=== PATIENT | female | born 1945 | race Hispanic/Latino ===

== ENCOUNTER 2019-03-01 08:40 | Day surgery (SDC) | payer MEDICARE ==
--- NOTE | 2019-02-27 11:46 | RAD REPORT ---
EXAM DESCRIPTION: RAD - Chest Pa And Lat (2 Views) - 02/27/2019 11:39 am CLINICAL HISTORY: preoppreop chest, pending gallbladder resection, history of hypertension COMPARISON: None. TECHNIQUE: PA and lateral views of the chest were obtained. FINDINGS: The lungs are clear of a peripheral mass or consolidation. Interstitial pattern is mildly prominent. In the absence of any active lung parenchymal process this is believed to be baseline. H eart size is normal and central vasculature is within normal limits. No pleural effusion or pneumoth orax seen. No acute bony finding noted. No aortic abnormality. IMPRESSION: No acute cardiopulmonary process.
[2019-02-27 11:48] LABS: Basophils % 0.9 % (0-1.3); Hematocrit 31.9 % (36.0-45.0); Lymphocytes % 24.7 % (15.3-44.8); RBC Red Blood Cell Count 3.52 M/uL (3.86-4.86)
[2019-02-27 12:07] LABS: Potassium 3.9 mmol/L (3.5-5.1)
[2019-02-27 12:18] LABS: ALT/SGPT 29 U/L (12-78); AST/SGOT 22 U/L (15-37); Albumin 3.6 g/dL (3.4-5.0); Alkaline Phosphatase 89 U/L (45-117); Amylase Level 50 U/L (25-115); Bilirubin Direct < 0.1 mg/dL (0-0.2); Bilirubin Total 0.3 mg/dL (0.2-1.0); Lipase 208 U/L (73-393); Protein, Total 7.4 g/dL (6.4-8.2)
--- NOTE | 2019-02-27 12:36 | EKG ---
Test Date: 2019-02-27 Test Time: 11:15:19 Operator Control Room: MISSY MEASUREMENT RESULTS: Intervals: Rate: 71 PA: 168 QRSD: 128 QT: 422 QTc: 458 [place]: P: 0 PA: 168 QRS: -21 T: 130 INTERPRETIVE STATEMENTS: Normal sinus rhythm Left bundle branch block Abnormal ECG No previous ECG available for comparison Electronically Signed On 02-27-19 12:35:35 PIECE PRESSER by Hilario Martins
--- OUTSIDE RECORDS SUMMARY | 2019-03-01 08:42 | XMS REPORT ---
:1945 [facility] Address [address] [place] [address] Dr. Manrique [address] [place] [id number] Care Team Providers Name Role Phone Unavailable Unavailable Unavailable Problems This patient has no known problems. Allergies, Adverse Reactions, Alerts This patient has no known allergies or adverse reactions. Medications This patient has no known medications.
[2019-03-01] MEDS ORDERED: NA CHLORIDE 0.9% 1,000 ML ONE (09:06)
[2019-03-01] MEDS ORDERED: CEFOXITIN/SWI 1gm 1 GM/10 ML SYR ONE (09:06)
[2019-03-01] MEDS ORDERED: FENTANYL CITR 100 MCG/2 ML ONE (10:18)
[2019-03-01] MEDS ORDERED: PROPOFOL 200 MG/20 ML VIAL IV ONE (10:18)
[2019-03-01] MEDS ORDERED: ROCURONIUM 50 MG/5 ML VIAL IV ONE (10:19)
[2019-03-01] MEDS ORDERED: LIDOCAINE 2% MPF 5 ML VIAL ONE (10:20)
[2019-03-01] MEDS ORDERED: MIDAZOLAM HCL 2 MG/2 ML INJ ONE (10:20)
[2019-03-01] MEDS ORDERED: ONDANSETRON 4 MG/2 ML VIAL ONE ×2 (10:23→13:18)
[2019-03-01] MEDS ORDERED: Phenylephrine HCl 10 MG/ML 1 ML VIAL ONE (11:03)
[2019-03-01] MEDS ORDERED: NS 0.9% VIAL 20 ML ONE (11:04)
[2019-03-01] MEDS ORDERED: EPHEDRINE SULF 50 MG/ML VIAL ONE (11:11)
[2019-03-01] MEDS ORDERED: LABETALOL 20 MG/4ML SYRINGE IV ONE (11:29)
--- NOTE | 2019-03-01 11:32 | P.BOP ---
Preoperative diagnosis: RUQ abd pain, symptomatic cholelithiasis Postoperative diagnosis: same plus acute cholecystitis, incarcerated umbilical hernia Primary procedure: 1. Laparoscopic cholecystectomy Secondary procedure: 2. Open repair of incarcerated umbilical hernia Chuck Wagon Driver: ALONA JONES ([employer]SULTANT) Estimated blood loss: <10cc Specimen: gb, hernia sac Findings: as above Anesthesia: General Complications: None Transferred to: Recovery Room Condition: Good
[2019-03-01] MEDS ORDERED: GLYCOPYRROLATE 0.2 MG/ML SYR ONE (11:36)
[2019-03-01] MEDS: HYDROMORPHONE HCL 1 MG/ML INJ ONE ×2 (12:25→12:31)
[2019-03-01 13:02] VITALS: BP 172/84; TEMP 98.7; O2SAT 94
[2019-03-01] MEDS ORDERED: ONDANSETRON 4 MG (ODT) TAB ONE (14:11)
--- NOTE | 2019-03-01 23:12 | OP ---
Date of Procedure: 03/01/2019 Surgeon: Don Stack MD Insert Cutter: Jana Yee. Preoperative Diagnoses: Acute cholecystitis, right upper quadrant abdominal pain, symptomatic cholel ithiasis. Postoperative Diagnoses: Acute cholecystitis, right upper quadrant abdominal pain, symptomatic darwin lithiasis plus incarcerated umbilical hernia. Procedure Performed: 1.Laparoscopic cholecystectomy. 2.Open repair of an incarcerated umbilical hernia. Estimated Blood Loss: Less than 10 mL. Specimen: Gallbladder and hernia sac with content. Findings: The patient has above in the gallbladder with inflammation of the wall. Patient also has umbilical hernia with incarcerated omentum. Anesthesia: General plus local. Indications: This is the case of a 73-year-old patient who comes to us with above diagnosis. Fully explained the benefits, alternatives, and risks of laparoscopic, possible open cholecystectomy, which include, but are not limited to infection, bleeding, damage to adjacent structures, anesthesia compl ications, choledocholithiasis, bile leak, pancreatitis, MT, and even . She also understands thi s may not relieve the symptoms. She might need more than one surgical intervention. She understood, signed a consent. Description Of Procedure: Patient was brought to the operating room, placed in supine position. Ane sthesia was given without complication. Abdominal area was prepped and draped in usual sterile fashi on. Marcaine 0.5% was injected for local anesthetic, followed by sharp incision of the skin in the i nfraumbilical region. Immediately hernia sac was found, so we have to address that issue first; we f ound a hernia sac, opened, noticed incarcerated omentum. Hard to reduce, so we just ligated it, redu mckenzie back the rest of the omentum after inspecting make sure there was no bleeding and then removed th e hernia sac and sent it to the pathologist. Incision was then extended to allow me to use part of t hat incision as the incision for Marjorie trocar, so incision was made in the infraumbilical region. V icryl #1 placed inside of the fascia, Marjorie trocar was carefully introduced, no bleeding was obtaine d. I placed 3 more trocars, 5 mm each one of them in the right upper quadrant under direct visualiza tion. This allowed me to put a grasper in the fundus of the gallbladder, another grasper in the infu ndibulum, retracted the gallbladder in the inferolateral fashion exposing the triangle of Calot, obta ining critical view of safety. Cystic duct and cystic artery were clearly isolated, freed circumfere ntially, and a connection between those and the gallbladder were clearly identified. I proceeded to ligate those by using at least 3 clips proximal, 1 clip distal, ligation in middle. Same was done wi the cystic artery and a small cystic artery branch. Hepatic arteries and common bile duct were pr otected at all times. The area was inspected once again after the gallbladder was removed from liver using Bovie cauterizer and removed from abdominal cavity using EndoCatch through the umbilical incis ion. Area was inspected once again. Clips were intact. No bile leak. No bleeding. At that moment , I proceeded to remove the trocars under direct vision, deflated the pneumoperitoneum, closed the um bilical hernia and the incision with #1 Vicryl. Irrigated subcutaneous tissue, closed that with 3-0 chromic, and the skin in a subcuticular fashion with 3-0 chromic and Steri-Strips on top. Sponge cou nt and instrument counts were correct. Patient tolerated the procedure well. Patient was sent to e Recovery in stable condition. ARNOLDO/PITO Voice ID: [id number] Report ID: [id number]
--- NOTE | 2019-03-01 23:18 | DS ---
Date of Discharge: 03/01/2019 Diagnoses: Right upper quadrant abdominal pain, acute cholecystitis, symptomatic cholelithiasis, inc arcerated umbilical hernia. Procedure: Laparoscopic cholecystectomy and open repair of incarcerated umbilical hernia. Disposition: Home. Activities: As tolerated. No heavy lifting. Followup: Follow up in my office in 1 week. Call for appointment, [phone]. Keep area dry for 48 h ours, then may shower. Keep Steri-Strips intact. Medications: Include Tylenol No. 3 q.4 hours p.r.n. pain, Bactrim DS p.o. b.i.d. ARNOLDO/PITO Voice ID: [id number] Report ID: [id number]
== END 2019-03-01 14:20 | disposition home or self-care (01) ==
LOC: OR 08:40
PROVIDERS: ATTEND Surgery
PROC: 0WQF0ZZ Repair Abdominal Wall, Open Approach (ICD-10-PCS; 2019-03-01)
PROC: 0FT44ZZ Resection of Gallbladder, Percutaneous Endoscopic Approach (ICD-10-PCS; principal; 2019-03-01 11:45)
DX: K80.12 Calculus of gallbladder with acute and chronic cholecystitis without obstruction (principal); K42.0 Umbilical hernia with obstruction, without gangrene; E11.9 Type 2 diabetes mellitus without complications; I10 Essential (primary) hypertension; E78.00 Pure hypercholesterolemia, unspecified; Z83.3 Family history of diabetes mellitus; Z82.49 Family history of ischemic heart disease and other diseases of the circulatory system
CPT/HCPCS: 93005; 85025; 80048; 36415; 82150; 82947 ×2; 80076; 88302; 88304; 83690; 71046; 47562; 49587; J2704; J3010; J1170; J7030; J2405 ×2; J2250; J2370